=== PATIENT | female | born 1950 | race Caucasian/White ===

== ENCOUNTER 2019-04-05 20:48 | Emergency (ER) | payer MEDICARE ==
[2019-04-05] MEDS ORDERED: Fentanyl 100 MCG/2 ML VIAL ONE (21:31)
--- NOTE | 2019-04-05 21:52 | RAD ---
XR Hip Lt 2-3 View INDICATION: Mechanical fall COMPARISON: None FINDINGS: Bones: There is a varus angulated left hip intertrochanteric fracture. Hip joint: There is severe osteoarthrosis of the left hip. SI joints and symphysis pubis: Radiographically normal. Intrapelvic contents: Visualized bowel gas pattern is within normal limits. Surrounding soft tissues: Radiographically normal. IMPRESSION: 1. Varus angulated left hip intertrochanteric fracture.
[2019-04-05] MEDS ORDERED: Morphine 4 MG/ML VIAL ONE (22:42)
[2019-04-06] MEDS ORDERED: Morphine 10 MG/ML VIAL ONE (00:19)
== END 2019-04-06 00:42 | disposition short-term general hospital (02) ==
LOC: ERS 20:48
DX: S72.142A Displaced intertrochanteric fracture of left femur, initial encounter for closed fracture (principal); E11.9 Type 2 diabetes mellitus without complications; I10 Essential (primary) hypertension; F32.9 Major depressive disorder, single episode, unspecified; Z79.899 Other long term (current) drug therapy; X50.1XXA Overexertion from prolonged static or awkward postures, initial encounter
CPT/HCPCS: 93005; 96374; 96375; 96376; J2270; J3010